=== PATIENT | male | born 1970 | race Caucasian/White ===

== ENCOUNTER 2020-01-06 00:29 | Emergency (ER) | payer BC ==
[~2020-01-06] VITALS: Ht 172.7 cm; Wt 94.3 kg
[2020-01-06 00:39] VITALS: BP 156/90; Ht 172.7 cm; Wt 94.3 kg
== END 2020-01-06 02:05 | disposition home or self-care (01) ==
LOC: ED 00:29
DX: J02.0 Streptococcal pharyngitis (principal); I10 Essential (primary) hypertension; Z88.0 Allergy status to penicillin
CPT/HCPCS: J1100